=== PATIENT | female | born 1935 | race Caucasian/White ===

== ENCOUNTER 2016-11-20 12:11 | Outpatient (CLI) ==
[2016-03-07 19:52] VITALS: BMI 27.1
[2016-11-20 12:27] LABS: BILIRUBIN,URINE Negative (NEGATIVE); KETONES,URINE Trace (NEGATIVE); LEUKOCYTE ESTERASE ,URINE 2+ (NEGATIVE); NITRITE,URINE Positive (NEGATIVE); PH,URINE 5.5 (5-9); PROTEIN,URINE 2+ (NEGATIVE); URINE, BLOOD 2+ (NEGATIVE)
[2016-11-20 12:34] LABS: ADD URINE MICROSCOPIC YES
[2016-11-20 12:35] LABS: BACTERIA,URINE 1+ (NOT PRESENT)
== END 2016-11-20 12:12 | disposition home or self-care (01) ==
LOC: LAB 12:11
PROVIDERS: ATTEND Emergency Medicine
DX: R50.9 Fever, unspecified (principal); R30.0 Dysuria
CPT/HCPCS: 81001; 87086; 87186

== ENCOUNTER 2017-03-20 08:57 | Outpatient (CLI) ==
[2016-03-07 19:52] VITALS: BMI 27.1
[2017-03-20 09:05] LABS: BILIRUBIN,URINE Negative (NEGATIVE); KETONES,URINE Negative (NEGATIVE); LEUKOCYTE ESTERASE ,URINE Trace (NEGATIVE); NITRITE,URINE Negative (NEGATIVE); PH,URINE 7.5 (5-9); PROTEIN,URINE Trace (NEGATIVE); URINE, BLOOD Trace-intact (NEGATIVE)
[2017-03-20 09:06] LABS: ADD URINE MICROSCOPIC YES
[2017-03-20 09:07] LABS: BACTERIA,URINE 1+ (NOT PRESENT)
== END 2017-03-20 08:58 | disposition home or self-care (01) ==
LOC: NONPT 08:57
PROVIDERS: ATTEND Family Medicine
DX: Z16.12 Extended spectrum beta lactamase (ESBL) resistance (principal)
CPT/HCPCS: 81001; 87086

== ENCOUNTER 2017-03-24 10:54 | Outpatient (CLI) ==
[2016-03-07 19:52] VITALS: BMI 27.1
[2017-03-24 11:03] LABS: BILIRUBIN,URINE 1+ (NEGATIVE); KETONES,URINE Trace (NEGATIVE); LEUKOCYTE ESTERASE ,URINE 3+ (NEGATIVE); NITRITE,URINE Negative (NEGATIVE); PROTEIN,URINE 1+ (NEGATIVE); URINE, BLOOD 1+ (NEGATIVE)
[2017-03-24 11:04] LABS: ADD URINE MICROSCOPIC YES
[2017-03-24 11:14] LABS: BACTERIA,URINE 1+ (NOT PRESENT)
== END 2017-03-24 10:55 | disposition home or self-care (01) ==
LOC: NONPT 10:54
PROVIDERS: ATTEND Internal Medicine
DX: N39.0 Urinary tract infection, site not specified (principal)
CPT/HCPCS: 81001; 87086

== ENCOUNTER 2017-05-01 11:40 | Emergency (ER) | payer OTHER ==
[2017-05-01 11:46] VITALS: BP 108/68; TEMP 97.8; BMI 27.0
--- NOTE | 2017-05-01 11:58 | ED.PDOC ---
General ED Provider: Dr. ALYSON SELF Chief Complaint: Respiratory Complaint Stated Complaint: Productive cough duration unclear Time Seen by Physician: 11:56 Mode of Arrival: Walk-In Information Source: EMT Exam Limitations: No limitations, Other (very hard of hearing) Primary Care Provider: RAUL RICHARDSON Nursing and Triage Documentation Reviewed and Agree: Yes Respiratory Complaint Exam - Respiratory Complaint/Exam Onset/Duration: uncertain Symptoms Are: Still present Timing: Intermittent Initial Severity: Moderate Current Severity: Moderate Location: Chest Character: Reports: Productive cough Aggravating: Reports: None Alleviating: Reports: None History of Healthcare-Acquired Pneumonia: Lives at prison Related Surgical History: Reports: None Pulmonary Embolism Risk Factors: None Tuberculosis Risk Factors: Reports: None Status Asthmaticus Risk Factors: Reports: None Home Oxygen Use: No Recent Stress Test: No Recent Echo/LV Function: No Current Antibiotic Use: No Current Asthma Medication Use: No Respiratory Distress: None Inadequate Respiratory Effort: No Dysphagia Present: No Stridor Present: No JVD Present: No Accessory Muscle Use: No Retractions: Not Present Diminished Breath Sounds: No Sinus Tenderness: None Grunting Respirations: No Kussmaul Respirations: No Review of Systems - Review Of Systems Constitutional: Reports: No symptoms Eyes: Reports: No symptoms Ears, Nose, Mouth, Throat: Reports: No symptoms (chronically MILLE LACS) Respiratory: Reports: Cough Cardiac: Reports: No symptoms GI: Reports: No symptoms : Reports: No symptoms Musculoskeletal: Reports: No symptoms Skin: Reports: No symptoms Neurological: Reports: No symptoms All Other Systems: Reviewed and Negative Past Medical History - Past Medical History Previously Healthy: No Endocrine: Reports: DM 2, Dyslipidemia Cardiovascular: Reports: Hypertension, A-Fib Respiratory: Reports: None Hematological: Reports: None Gastrointestinal: Reports: None Genitourinary: Reports: CKD Neuro/Psych: Reports: CVA Musculoskeletal: Reports: None Cancer: Reports: None Last Menstrual Period: N/A - Surgical History General Surgical History: Reports: Unknown - Family History Family History: Reports: Unknown - Social History Smoking Status: Never smoker Hx Substance Use: No Alcohol Screening: None - Immunizations Tetanus Shot up to Date: Yes Physical Exam - Physical Exam Appearance: Well-appearing Ill-appearing: None Pain Distress: None Critical Care Note - Critical Care Note Total Time (mins): 0 Course - Course Hematology/Chemistry: 05/01/17 12:21 05/01/17 12:21 Orders, Labs, Meds: Lab Review 05/01/17 05/01/17 12:21 13:05 WBC 8.03 RBC 4.10 L Hgb 12.7 Hct 37.9 MCV 92.4 MCH 31.0 MCHC 33.5 RDW Coeff of Lexie 13.2 Plt Count 223 Immature Gran % (Auto) 1.0 Neut % (Auto) 58.5 Lymph % (Auto) 29.0 [place] % (Auto) 9.7 Eos % (Auto) 1.6 Baso % (Auto) 0.2 Immature Gran # (Auto) 0.1 Neut # 4.7 Lymph # 2.3 [place] # 0.8 Eos # 0.1 Baso # 0.0 PT 12.7 H INR 1.26 Sodium 137 Potassium 4.0 Chloride 107 Carbon Dioxide 27 Anion Gap 7.0 BUN 24 H Creatinine 1.07 Estimated GFR (MDRD) 49.00 BUN/Creatinine Ratio 22.42 Glucose 140 H Calcium 9.0 Total Bilirubin 0.28 AST 15 ALT 13 Alkaline Phosphatase 82 Total Protein 7.2 Albumin 2.8 L Globulin 4.4 Albumin/Globulin Ratio 0.64 Urine Color Other Urine Clarity Cloudy Urine pH >=9.0 Ur Specific [place] 1.015 Urine Protein 2+ Urine Glucose (UA) Negative Urine Ketones Negative Urine Blood 2+ Urine Nitrite Positive Urine Bilirubin Negative Urine Urobilinogen 1.0 Ur Leukocyte Esterase 3+ Urine Microscopic RBC 2-5 Urine Microscopic WBC Tntc Ur Squamous Epith Cells 0-2 Triple Phos Crystals Trace Urine Bacteria 4+ Urine Mucus 3+ Orders Category Date Time Status NEBULIZER TREATMENT Stat CARDIO 05/01/17 12:14 Completed CBC W/ AUTO DIFF Stat LAB 05/01/17 12:21 Completed COMPREHENSIVE METABOLIC PANEL Stat LAB 05/01/17 12:21 Completed PT WITH INR Stat LAB 05/01/17 12:21 Completed URINALYSIS C & S IF INDICATED Stat LAB 05/01/17 13:05 Completed Albuterol Sulfate 0.083% Neb [Albuterol 0.083% Neb] MEDS 05/01/17 12:14 Discontinued 1 vial NEB ONCE STA CHEST, 1V AP ONLY Stat RADS 05/01/17 12:10 Completed Medications Discontinued Medications Generic Name Dose Route Start Last Admin Trade Name Freq PRN Reason Stop Dose Admin Albuterol Sulfate 1 vial 05/01/17 12:14 Albuterol 0.083% Neb NEB 05/01/17 12:15 ONCE STA Vital Signs: Temp Pulse Resp BP Pulse Ox 05/01/17 11:40 97.8 F 82 14 108/68 92 L Departure - Departure Time of Disposition: 13:25 Disposition: HOME SELF-CARE Discharge Problem: Bronchitis, Bronchospasm with bronchitis, acute Instructions: Acute Bronchitis (ED), Bronchospasm (ED) Condition: Good Pt referred to PMD for follow-up: Yes (Recheck by PCP in 3 days) Allergies/Adverse Reactions: Allergies tuberculin, purified protein deriva [From Tubersol] Adverse Reaction (Verified 05/01/17 12:08) Home Medications: Ambulatory Orders Calcium Carbonate/Vitamin D3 [Calcium 600 + Vit D 400 Softgl] 1 cap PO BID 02/09 Ferrous Sulfate 325 mg PO DAILY 02/09/15 Levothyroxine Sodium [Synthroid] 75 mcg PO QDAC 02/09/15 Omeprazole [Prilosec] 40 mg PO QDAC 02/09/15 Pravastatin Sodium [Pravachol] 40 mg PO QPM 02/09/15 Guaifenesin [Mucinex] 600 mg PO Q12HR PRN 08/19/15 Ipratropium/Albuterol Neb [Duoneb] 1 vial NEB RTQ8H PRN 08/19/15 Insulin Glargine,Hum.rec.anlog [Lantus] 15 unit SUBCUT BEDTIME #1 ml 08/25/15 Docusate Sodium [Colace] 100 mg PO Q8HR PRN 10/29/15 Hydrocodone Bit/Acetaminophen [[place] 5-325] 1 each PO Q6HR PRN 10/29/15 Insulin Regular, Human [Humulin R] 1 unit SUBCUT DIRECTED PRN 10/29/15 Lipase/Protease/Amylase [[place] 24,000 Units Capsule] 1 each PO DAILY Magnesium Hydroxide [Milk of Magnesia] 30 ml PO Q8HR PRN 10/29/15 Mineral Oil [Mineral Oil Enema] 133 ml RC DAILY PRN 10/29/15 Sennosides [Senna] 8.6 mg PO BID 10/29/15 Azithromycin [Zithromax] 500 mg PO DAILY #5 tablet 05/01/17 Guaifenesin [Mucinex] 1,200 mg PO BID #40 tab.er.12h 05/01/17 Warfarin Sodium [Coumadin] 2 mg PO DAILY 05/01/17 Disposition Discussed With: Patient, Family
[2017-05-01] MEDS ORDERED: ALBUTEROL 0.083% NEB NEB STA (12:14)
[2017-05-01 12:27] LABS: BASOPHILS % (AUTO) 0.2 % (0.0-3.0); EOSINOPHILS # (AUTO) 0.1 K/ul (0.0-0.7); EOSINOPHILS % (AUTO) 1.6 % (0.0-7.0); HEMATOCRIT 37.9 % (37.0-47.0); HEMOGLOBIN 12.7 g/dl (12.0-16.0); LYMPHOCYTES # (AUTO) 2.3 K/uL (0.60-3.4); MEAN CORPUSCULAR HGB CONC 33.5 (31.8-35.4); MEAN CORPUSCULAR VOLUME 92.4 fl (81.0-99.0); MONOCYTES # (AUTO) 0.8 K/uL (0.4-2.0); MONOCYTES % (AUTO) 9.7 (0-10); NEUTROPHILS # (AUTO) 4.7 K/ul (2.0-6.9); NEUTROPHILS % (AUTO) 58.5; PLATELET COUNT 223 10^3/uL (140-440); WHITE BLOOD COUNT 8.03 K/ul (4.6-10.2)
[2017-05-01 12:44] LABS: PROTHROMBIN TIME 12.7 SEC (9.3-11.0)
[2017-05-01 12:46] LABS: ALBUMIN 2.8 g/dL (3.4-5.0); ALBUMIN/GLOBULIN RATIO 0.64; BILIRUBIN,TOTAL 0.28 mg/dL (0.00-1.20); BUN/CREATININE RATIO 22.42; CREATININE 1.07 mg/dL (0.60-1.30); TOTAL PROTEIN 7.2 g/dL (5.8-8.1)
--- NOTE | 2017-05-01 12:48 | DI ---
EXAM: Single view chest COMPARISON: Chest Xray from 10/31/2015 HISTORY: Cough FINDINGS: Lungs are clear with no lobar consolidation, failure, large effusion or significant atele ctasis. There is old granulomatous disease. Cardiac and mediastinal silhouettes are unremarkable. No acute soft tissue or osseous abnormalities. IMPRESSION: No active disease.
[2017-05-01 13:12] LABS: BILIRUBIN,URINE Negative (NEGATIVE); KETONES,URINE Negative (NEGATIVE); LEUKOCYTE ESTERASE ,URINE 3+ (NEGATIVE); NITRITE,URINE Positive (NEGATIVE); PH,URINE >=9.0 (5-9); PROTEIN,URINE 2+ (NEGATIVE); URINE, BLOOD 2+ (NEGATIVE)
[2017-05-01 13:15] LABS: ADD URINE MICROSCOPIC YES
[2017-05-01 13:17] LABS: BACTERIA,URINE 4+ (NOT PRESENT)
[2017-05-01] MEDS ORDERED: SOLU-MEDROL 125 MG IM STA (13:26)
[2017-05-01] MEDS ORDERED: SODIUM CHLORIDE 1,000 ML IV STA (13:28)
== END 2017-05-01 14:05 | disposition home or self-care (01) ==
LOC: ED 11:40
DX: J20.9 Acute bronchitis, unspecified (principal); E11.9 Type 2 diabetes mellitus without complications; E78.5 Hyperlipidemia, unspecified; I10 Essential (primary) hypertension; N18.9 Chronic kidney disease, unspecified; I48.91 Unspecified atrial fibrillation; Z79.01 Long term (current) use of anticoagulants; Z79.899 Other long term (current) drug therapy; Z86.73 Personal history of transient ischemic attack (TIA), and cerebral infarction without residual deficits; R05 Cough; R09.89 Other specified symptoms and signs involving the circulatory and respiratory systems
CPT/HCPCS: 36415; 80053; 81001; 85025; 85610; 87086; 87186; 94640; 96372; 99285

== ENCOUNTER 2017-05-31 11:27 | Outpatient (CLI) | payer OTHER ==
[2017-05-31 11:39] LABS: BILIRUBIN,URINE Negative (NEGATIVE); KETONES,URINE Negative (NEGATIVE); LEUKOCYTE ESTERASE ,URINE 3+ (NEGATIVE); NITRITE,URINE Positive (NEGATIVE); PROTEIN,URINE 1+ (NEGATIVE); URINE, BLOOD 2+ (NEGATIVE)
[2017-05-31 11:42] LABS: ADD URINE MICROSCOPIC YES
[2017-05-31 11:48] LABS: BACTERIA,URINE 3+ (NOT PRESENT)
== END 2017-05-31 11:28 | disposition home or self-care (01) ==
LOC: NONPT 11:27
PROVIDERS: ATTEND Internal Medicine
DX: N39.0 Urinary tract infection, site not specified (principal)
CPT/HCPCS: 81001; 87086

== ENCOUNTER 2017-08-09 15:24 | Outpatient (CLI) ==
[2017-08-09 15:36] LABS: BILIRUBIN,URINE Negative (NEGATIVE); KETONES,URINE Negative (NEGATIVE); LEUKOCYTE ESTERASE ,URINE 3+ (NEGATIVE); NITRITE,URINE Positive (NEGATIVE); PROTEIN,URINE 1+ (NEGATIVE); URINE, BLOOD 2+ (NEGATIVE)
[2017-08-09 16:03] LABS: ADD URINE MICROSCOPIC YES
[2017-08-09 16:04] LABS: BACTERIA,URINE 4+ (NOT PRESENT)
== END 2017-08-09 15:25 | disposition home or self-care (01) ==
LOC: NONPT 15:24
PROVIDERS: ATTEND Internal Medicine
DX: R82.90 Unspecified abnormal findings in urine (principal)
CPT/HCPCS: 81001; 87086

== ENCOUNTER 2017-08-17 01:34 | Inpatient (IN) | payer OTHER ==
--- NOTE | 2017-08-17 03:18 | CT ---
EXAM: CT of the chest without contrast. HISTORY: Cough. PROCEDURE: Contiguous axial CT images of the chest without contrast with coronal and sagittal reform ats. FINDINGS: There is motion artifact which limits the exam. The heart is within normal limits in size. The thoracic aorta is within normal limits in diameter. There are atherosclerotic calcifications i n the thoracic aorta. There are coronary artery calcifications. There are calcified hilar lymph node s and bilateral calcified granulomas in the lungs. There is minimal right upper lobe and bibasilar at electasis and/or pneumonia. There are degenerative changes in the spine. There is a T11 compression f racture which appears chronic. There are gallstones in the gallbladder. The gallbladder is within no rmal limits in size. The adrenal glands and liver are normal in appearance. Impression: Minimal right upper lobe and bibasilar atelectasis and/or pneumonia. Atherosclerotic vascular disease. Cholelithiasis.
--- NOTE | 2017-08-17 03:18 | ED.PDOC ---
General ED Provider: Dr. JOSSE JACOBSON-ER Chief Complaint: Fever Stated Complaint: she was sent by [facility] for fever eval Time Seen by Physician: 01:40 Mode of Arrival: Ambulance Information Source: Patient, Family, Retirement, EMT Exam Limitations: No limitations Primary Care Provider: RAUL CORONADO Nursing and Triage Documentation Reviewed and Agree: Yes Reviewed sepsis parameters & appropriate labs ordered?: Yes System Inflammatory Response Syndrome: Not Applicable Sepsis Protocol: For patient's 13 years and over: Temp is 96.8 and below OR 101 and greater Pulse >90 BPM Resp >20/minute Acutely Altered Mental Status Are patient's symptoms suggestive of a new infection, such as: -Pneumonia -Skin, Soft Tissue -Endocarditis -UTI -Bone, Joint Infection -Implantable Device -Acute Abdominal Infection -Wound Infection -Meningitis -Blood Stream Catheter Infection -Unknown Miscellaneous Complaint Exam - Febrile Illness/Adult Complaint/Exam Onset/Duration: less than 12hrs Symptoms Are: Still present Timing: Constant Initial Severity: Mild Current Severity: Moderate Aggravating: Reports: Unknown Alleviating: Reports: None Associated Signs and Symptoms: Reports: Cough, Chills. Denies: Headache, Fluid intake, Short of air, Sore throat, Nausea, Vomiting, Diaphoresis, Dysuria, Arthralgia, Stiff neck, Myalgia, Rash, Altered mental status Related History: Reports: Similar episode Serious Bacterial Infection Risk Factors: Reports: None Current Antibiotic Use: No Differential Diagnoses: Bacteremia, Pyelonephritis Quality Indicator For Non-Traumatic Chest Pain/Syncope: EKG Performed Review of Systems - Review Of Systems Constitutional: Reports: Chills, Fever, Weakness Eyes: Reports: No symptoms Ears, Nose, Mouth, Throat: Reports: No symptoms Respiratory: Reports: Cough Cardiac: Reports: No symptoms GI: Reports: No symptoms : Reports: No symptoms Musculoskeletal: Reports: No symptoms Skin: Reports: No symptoms Neurological: Reports: No symptoms Endocrine: Reports: No symptoms Hematologic/Lymphatic: Reports: No symptoms All Other Systems: Reviewed and Negative Past Medical History - Past Medical History Previously Healthy: No Endocrine: Reports: DM 2, Dyslipidemia Cardiovascular: Reports: Hypertension, A-Fib Respiratory: Reports: None Hematological: Reports: None Gastrointestinal: Reports: None Genitourinary: Reports: CKD Neuro/Psych: Reports: CVA Musculoskeletal: Reports: None Cancer: Reports: None Last Menstrual Period: UNKNOWN - Surgical History General Surgical History: Reports: Unknown - Family History Family History: Reports: Unknown - Social History Smoking Status: Never smoker Hx Substance Use: No Alcohol Screening: None Lives: With family - Immunizations Tetanus Shot up to Date: (UNKNOWN) Physical Exam - Physical Exam Appearance: Well-appearing, No pain distress, Well-nourished Eyes: GLEN, EOMI, Conjunctiva clear ENT: Ears normal, Nose normal, Oropharynx normal Neck: Supple Respiratory: Airway patent, Breath sounds clear, Breath sounds equal, Respirations nonlabored Cardiovascular: RRR, Pulses normal, No rub, No murmur GI/: Soft, Nontender, No masses, Bowel sounds normal, No Organomegaly Musculoskeletal: Normal strength, ROM intact, No edema, No calf tenderness Skin: Warm, Dry, Normal color Neurological: Sensation intact Psychiatric: Affect appropriate, Mood appropriate Interpretation - Radiology Interpretation Radiology Interpretation By: Radiologist Radiology Results: Positive Exam Interpreted: CT Scan Physician Notification - Case Discussed Physician Notified: dr coronado Time of Notification: 03:25 Critical Care Note - Critical Care Note Total Time (mins): 0 Course - Course Hematology/Chemistry: 08/17/17 02:36 08/17/17 02:36 Orders, Labs, Meds: Lab Review 08/17/17 08/17/17 08/17/17 02:00 02:36 02:36 WBC 12.87 H RBC 3.84 L Hgb 11.7 L Hct 35.7 L MCV 93.0 MCH 30.5 MCHC 32.8 RDW Coeff of Lexie 13.5 Plt Count 259 Immature Gran % (Auto) 0.5 Neut % (Auto) 64.6 Lymph % (Auto) 23.2 [place] % (Auto) 10.6 H Eos % (Auto) 0.9 Baso % (Auto) 0.2 Immature Gran # (Auto) 0.1 Neut # 8.3 H Lymph # 3.0 [place] # 1.4 Eos # 0.1 Baso # 0.0 Sodium 143 Potassium 3.6 Chloride 108 H Carbon Dioxide 26 Anion Gap 12.6 BUN 21 H Creatinine 1.69 H Estimated GFR (MDRD) 29.00 BUN/Creatinine Ratio 12.42 Glucose 219 H Calcium 8.5 Total Bilirubin 0.5 AST 16 ALT 14 Alkaline Phosphatase 82 Total Protein 7.5 Albumin 2.3 L Globulin 5.2 Albumin/Globulin Ratio 0.44 Urine Color Urine Clarity Urine pH Ur Specific [place] Urine Protein Urine Glucose (UA) Urine Ketones Urine Blood Urine Nitrite Urine Bilirubin Urine Urobilinogen Ur Leukocyte Esterase Urine Microscopic RBC Urine Microscopic WBC Ur Squamous Epith Cells Urine Bacteria Influenza A (Rapid) Negative by naat Influenza B (Rapid) Negative by naat 08/17/17 03:10 WBC RBC Hgb Hct MCV MCH MCHC RDW Coeff of Lexie Plt Count Immature Gran % (Auto) Neut % (Auto) Lymph % (Auto) [place] % (Auto) Eos % (Auto) Baso % (Auto) Immature Gran # (Auto) Neut # Lymph # [place] # Eos # Baso # Sodium Potassium Chloride Carbon Dioxide Anion Gap BUN Creatinine Estimated GFR (MDRD) BUN/Creatinine Ratio Glucose Calcium Total Bilirubin AST ALT Alkaline Phosphatase Total Protein Albumin Globulin Albumin/Globulin Ratio Urine Color Yellow Urine Clarity Cloudy Urine pH 5.5 Ur Specific [place] 1.015 Urine Protein 2+ Urine Glucose (UA) Negative Urine Ketones Trace Urine Blood 2+ Urine Nitrite Negative Urine Bilirubin Negative Urine Urobilinogen 0.2 Ur Leukocyte Esterase 3+ Urine Microscopic RBC 5-10 Urine Microscopic WBC Tntc Ur Squamous Epith Cells Not present Urine Bacteria 3+ Influenza A (Rapid) Influenza B (Rapid) Orders Category Date Time Status ABG DRAW REQUEST Stat CARDIO 08/17/17 03:22 Ordered EKG-(ED ONLY) Stat CARDIO 08/17/17 03:21 Ordered ED IV/MEDIPORT/POWERPORT .ONCE EMERGENCY 08/17/17 03:24 Ordered ABG Stat LAB 08/17/17 03:21 Ordered BLOOD CULTURE (ED ONLY) Stat LAB 08/17/17 02:36 Received CBC W/ AUTO DIFF Stat LAB 08/17/17 02:36 Completed COMPREHENSIVE METABOLIC PANEL Stat LAB 08/17/17 02:36 Completed MOLECULAR GROUP A STREP Stat LAB 08/17/17 02:00 Results RAPID FLU A/B Stat LAB 08/17/17 02:00 Completed STREP SCREEN Stat LAB 08/17/17 02:00 Results URINALYSIS C & S IF INDICATED Stat LAB 08/17/17 03:10 Completed URINE CULTURE Stat LAB 08/17/17 03:10 Received 0.9 % Sodium Chloride [Saline Flush] MEDS 08/17/17 03:24 Ordered 1 syr IVF PRN PRN Aztreonam [Azactam] 1 gm MEDS 08/17/17 03:24 Ordered 0.9 % Sodium Chloride [Sodium Chloride] 50 ml IV ONCE SODIUM CHLORIDE 0.9% @ 1,000 MLS/HR(1,000ml) MEDS 08/17/17 03:24 Ordered Sodium Chloride 0.9% [Sodium Chloride] 1,[address] CHEST W/O CONTRAST Stat RADS 08/17/17 02:27 Completed Vital Signs: Temp Pulse Resp BP Pulse Ox 08/17/17 01:35 99.3 F 93 H 20 90/58 L 94 L Departure - Departure Time of Disposition: 03:25 Disposition: ADMITTED INPATIENT Discharge Problem: Pneumonia Qualifiers: Pneumonia type: due to unspecified organism Laterality: unspecified laterality Lung location: unspecified part of lung Qualified Code(s): J18.9 - Pneumonia, unspecified organism UTI (urinary tract infection) Qualifiers: Urinary tract infection type: site unspecified Hematuria presence: without hematuria Qualified Code(s): N39.0 - Urinary tract infection, site not specified Condition: Stable Pt referred to PMD for follow-up: Yes Allergies/Adverse Reactions: Allergies tuberculin, purified protein deriva [From Tubersol] Adverse Reaction (Verified 08/17/17 02:27) Home Medications: Ambulatory Orders Calcium Carbonate/Vitamin D3 [Calcium 600 + Vit D 400 Softgl] 1 cap PO BID 02/09 Ferrous Sulfate 325 mg PO DAILY 02/09/15 Levothyroxine Sodium [Synthroid] 75 mcg PO QDAC 02/09/15 Omeprazole [Prilosec] 20 mg PO QDAC 02/09/15 Pravastatin Sodium [Pravachol] 40 mg PO QPM 02/09/15 Insulin Glargine,Hum.rec.anlog [Lantus] 15 unit SUBCUT BEDTIME #1 ml 08/25/15 Docusate Sodium [Colace] 100 mg PO BID 10/29/15 Insulin Regular, Human [Humulin R] 1 unit SUBCUT DIRECTED PRN 10/29/15 Lipase/Protease/Amylase [[place] 24,000 Units Capsule] 1 each PO DAILY Magnesium Hydroxide [Milk of Magnesia] 30 ml PO Q8HR PRN 10/29/15 Sennosides [Senna] 8.6 mg PO BID 10/29/15 Ipratropium/Albuterol Neb [Duoneb] 1 vial NEB RTQ6H PRN #40 vial.neb 05/01/17 Warfarin Sodium [Coumadin] 2 mg PO DAILY 05/01/17 Acetaminophen [Tylenol] 2 tab PO Q6H PRN 08/17/17 Amoxicillin/Potassium Clav [Augmentin 875-125 Tablet] 1 each PO BID 08/17/17 Mupirocin [Bactroban] 1 applic TP BID 08/17/17 Oseltamivir Phosphate [Tamiflu] 75 mg PO DAILY 08/17/17 Sub-Q Infusion Pump Accessory [Accu-Chek] 1 each MC BID 08/17/17 Transfer Form Completed: No Disposition Discussed With: Family
[2017-08-17] MEDS ORDERED: AZACTAM 1 GM in SODIUM CHLORIDE 50 ML IV STA (03:24)
[2017-08-17] MEDS ORDERED: SODIUM CHLORIDE 1,000 ML IV STA (03:24)
[2017-08-17] MEDS ORDERED: TYLENOL PO PRN (03:27)
[2017-08-17] MEDS ORDERED: HUMULIN R SUBCUT PRN (03:30)
[2017-08-17] MEDS ORDERED: DUONEB NEB PRN (03:30)
[2017-08-17] MEDS ORDERED: SODIUM CHLORIDE 1,000 ML IV SCH (03:30)
[2017-08-17] MEDS ORDERED: MILK OF MAGNESIA PO PRN (03:30)
[2017-08-17] MEDS ORDERED: AZACTAM 1 GM in SODIUM CHLORIDE 50 ML IV SCH (05:00)
[2017-08-17 05:30] VITALS: BMI 12.4
[2017-08-17] MEDS ORDERED: AZACTAM ONE (05:36)
[2017-08-17] MEDS ORDERED: SYNTHROID PO SCH (06:30)
[2017-08-17] MEDS: PRILOSEC PO SCH (07:04)
[2017-08-17] MEDS ORDERED: VANCOMYCIN 500 MG in SODIUM CHLORIDE 100 ML IV SCH (09:00)
[2017-08-17] MEDS ORDERED: COUMADIN PO SCH (09:00)
[2017-08-17] MEDS ORDERED: LIPASE PO SCH (09:00)
[2017-08-17] MEDS ORDERED: NON-FORMULARY MEDICATION (Ferrous Sulfate [Ferrous Sulfate] 325 MG) PO SCH (09:00)
[2017-08-17] MEDS ORDERED: AMYLASE PO SCH (09:00)
[2017-08-17] MEDS ORDERED: [UNRECOGNIZED DRUG - OTHER] PO SCH (09:00)
[2017-08-17] MEDS ORDERED: PROTEASE PO SCH (09:00)
[2017-08-17] MEDS ORDERED: VANCOMYCIN 1,000 MG in SODIUM CHLORIDE 200 ML IV SCH (09:00)
[2017-08-17] MEDS ORDERED: SENNOSIDES 8.6 MG PO SCH (09:00)
[2017-08-17] MEDS: COLACE PO SCH ×2 (09:03→23:16)
[2017-08-17] MEDS: FERROUS SULFATE PO SCH (09:03)
[2017-08-17] MEDS: CREON DR 12,000 UNITS CAPSULE PO SCH (09:03)
[2017-08-17] MEDS: SENNA PO SCH ×2 (09:03→23:16)
[2017-08-17] MEDS: SODIUM CHLORIDE 1,000 ML IV SCH (09:04)
[2017-08-17] MEDS: SYNTHROID PO SCH (09:13)
[2017-08-17] MEDS ORDERED: VITAMIN K ORAL SOLUTION 5 MG/5 ML PO STA (09:23)
--- NOTE | 2017-08-17 11:04 | PCM.PROG ---
Attending Provider: ATTENDING PROVIDER: Dr. RAUL RICHARDSON This patient is seen with Shanita Kate, Nurse Practitioner. DATE OF SERVICE: 08/17/17 SUBJECTIVE: This 81 year old WHITE/ F was hospitalized 08/17/17. The patient is resting comfortably in bed, The patient is alert, not oriented due to confusion. REVIEW OF SYSTEMS: CONSTITUTIONAL: No night sweats. No fatigue, malaise, lethargy. No fever or chills. HEENT: Eyes: No visual changes. No eye pain. No eye discharge. ENT: No runny nose. No epistaxis. No sinus pain. No odynophagia. No congestion. RESPIRATORY: Cough and congestion. No hemoptysis. No shortness of breath. CARDIOVASCULAR: No angina symptoms. No CHF symptoms. No atypical chest pain for CAD. No palpitations. No orthopnea.. GASTROINTESTINAL: No abdominal pain. No nausea or vomiting. No diarrhea or constipation. No hematemesis. No hematochezia. GENITOURINARY: No urgency. No frequency. No dysuria. No hematuria. No obstructive symptoms. No discharge. No pain. No significant abnormal bleeding. MUSCULOSKELETAL: No musculoskeletal pain; no joint swelling. NEUROLOGICAL: Awake, alert, confused. No headache. No neck pain. No syncope. No seizures. No dizziness. PSYCHIATRIC: Not anxious. No depression. No suicidal thoughts. No homicidal thoughts. SKIN: No rash. No lesions. No wounds. ENDOCRINE: No unexplained weight loss. No weight gain. HEMATOLOGIC/LYMPHATIC: No anemia. No purpura. No petechiae. No prolonged or excessive bleeding. No palpable lymph nodes. PHYSICAL EXAMINATION: GENERAL: The patient is awake, alert and oriented, lying in bed in no distress. VITAL SIGNS: Temperature 96.6 F, Pulse 87, Respiratory Rate 16, BP 90/58, Pulse Ox 100% HEENT: Head normocephalic, atraumatic. Eyes: Extraocular muscles are intact. Pupils are equal, round and reactive to light and accommodation. Ears: No lesions. Nose appeared normal. Throat: No exudate or erythema. NECK: Supple. No JVD, no carotid bruit. No lymphadenopathy or thyromegaly. LUNGS: Diminished breath sounds bilaterally. Clear to auscultation. Percussion note normal. Chest symmetrical. HEART: S1, S2, no S3. No murmurs. No cyanosis or clubbing. No ascites. Pulses: Dorsalis pedis and posterior tibial pulses +1 to +2 both sides. ABDOMEN: Soft. Non-tender. Bowel sounds active. No CVA tenderness. No mass felt. EXTREMITIES: No edema. Full range of motion of all extremities, equal. NEUROLOGIC: Oriented to person only; confusion. No focal deficit. Cranial nerves II through XII are grossly intact. No headache, no double vision or headache. SKIN: Not dry. Intact. Turgor-normal. LYMPHATIC: No palpable lymph nodes/no lymphedema. MUSCULOSKELETAL: Normal joints with no swelling. Muscle tone is normal. ASSESSMENT: 1. Right upper lobe pneumonia 2. UTI, culture pending 3. Hypercoagulation 4. Dehydration PLAN: 1. Continue IV antibiotics 2. Decrease IV fluids to 50 mL Plan and coordination of the patient's care discussed in the presence of Commercial Crabber and nurse. CONDITION: Stable SCRIBED BY: AUGUSTINA ROSALES Law Professor scribed while in presence of service performed by Dr. Richardson/Shanita Kate APRN on 08/17/17 ([id number])
[2017-08-17] MEDS: AZACTAM 1 GM in SODIUM CHLORIDE 50 ML IV SCH ×2 (12:35→23:13)
[2017-08-17] MEDS: LOTRISONE 45 GM TP SCH ×2 (14:30→23:14)
[2017-08-17] MEDS: PRAVACHOL PO SCH (18:08)
[2017-08-17] MEDS ORDERED: LANTUS SUBCUT SCH (21:00)
[2017-08-18] MEDS: AZACTAM 1 GM in SODIUM CHLORIDE 50 ML IV SCH ×3 (04:01→20:50)
[2017-08-18] MEDS: SODIUM CHLORIDE 1,000 ML IV SCH (04:03)
[2017-08-18] MEDS: SYNTHROID PO SCH (06:02)
[2017-08-18] MEDS: PRILOSEC PO SCH (06:02)
[2017-08-18] MEDS: CREON DR 12,000 UNITS CAPSULE PO SCH (08:39)
[2017-08-18] MEDS: SENNA PO SCH ×2 (08:39→20:50)
[2017-08-18] MEDS: FERROUS SULFATE PO SCH (08:39)
[2017-08-18] MEDS: COLACE PO SCH ×2 (08:39→20:50)
[2017-08-18] MEDS: BACTROBAN TP SCH ×2 (08:43→20:51)
--- NOTE | 2017-08-18 09:32 | PCM.PROG ---
Attending Provider: ATTENDING PROVIDER: Dr. RAUL RICHARDSON This patient is seen with Shanita Kate, Nurse Practitioner. DATE OF SERVICE: 08/18/17 SUBJECTIVE: This 81 year old WHITE/ F was hospitalized 08/17/17. The patient is lying in bed, alert but difficult to communicate due to confusion. No fever. REVIEW OF SYSTEMS: CONSTITUTIONAL: Weakness. No night sweats. No fever or chills. HEENT: Eyes: No visual changes. No eye pain. No eye discharge. ENT: No runny nose. No epistaxis. No sinus pain. No odynophagia. No congestion. RESPIRATORY: Cough. No congestion. . No hemoptysis. No shortness of breath. CARDIOVASCULAR: No angina symptoms. No CHF symptoms. No atypical chest pain for CAD. No palpitations. No orthopnea.. GASTROINTESTINAL: No abdominal pain. No nausea or vomiting. No diarrhea or constipation. No hematemesis. No hematochezia. GENITOURINARY: No urgency. No frequency. No dysuria. No hematuria. No obstructive symptoms. No discharge. No pain. No significant abnormal bleeding. MUSCULOSKELETAL: No musculoskeletal pain; no joint swelling. NEUROLOGICAL: Awake, alert, oriented to person. No headache. No neck pain. No syncope. No seizures. No dizziness. PSYCHIATRIC: Not anxious. No depression. No suicidal thoughts. No homicidal thoughts. SKIN: No rash. Open wound tip of ring finger, left hand. ENDOCRINE: No unexplained weight loss. No weight gain. HEMATOLOGIC/LYMPHATIC: No anemia. No purpura. No petechiae. No prolonged or excessive bleeding. No palpable lymph nodes. PHYSICAL EXAMINATION: GENERAL: The patient is awake, alert, but confused lying in bed in no distress. VITAL SIGNS: Temperature 97.0 F, Pulse 82, Respiratory Rate 20, BP 109/57, Pulse Ox 94% HEENT: Head normocephalic, atraumatic. Eyes: Extraocular muscles are intact. Pupils are equal, round and reactive to light and accommodation. Ears: No lesions. Nose appeared normal. Throat: No exudate or erythema. NECK: Supple. No JVD, no carotid bruit. No lymphadenopathy or thyromegaly. LUNGS: Diminished breath sounds bilaterally. Clear to auscultation. Percussion note normal. Chest symmetrical. HEART: S1, S2, no S3. No murmurs. No cyanosis or clubbing. No ascites. Pulses: Dorsalis pedis and posterior tibial pulses +1 to +2 both sides. ABDOMEN: Soft. Non-tender. Bowel sounds active. No CVA tenderness. No mass felt. EXTREMITIES: Trace lower edema, right. Full range of motion of all extremities , equal. NEUROLOGIC: No focal deficit. Cranial nerves II through XII are grossly intact. No headache, no double vision or headache. SKIN: warm and dry. Open wound tip of left right finger, mild erythema with purulent exudate. LYMPHATIC: No palpable lymph nodes/no lymphedema. MUSCULOSKELETAL: Normal joints with no swelling. Muscle tone is normal. LAB REVIEW: 08/18/17 05:00 08/18/17 05:00 08/18/17 05:00: Sodium 138, Potassium 4.4, Chloride 105, Carbon Dioxide 27, Anion Gap 10.4, BUN 14, Creatinine 0.84 D, Estimated GFR (MDRD) 65.00, BUN/ Creatinine Ratio 16.66, Glucose 89, Calcium 8.2, Total Bilirubin 0.5, AST 16, ALT 12, Alkaline Phosphatase 74, Total Protein 6.5, Albumin 2.1 L, Globulin 4.4 , Albumin/Globulin Ratio 0.48 08/18/17 05:00: PT 16.2 H D, INR 1.61 D 08/18/17 05:00: WBC 8.00, RBC 3.45 L, Hgb 10.3 L, Hct 32.0 L, MCV 92.8, MCH 29.9 , MCHC 32.2, RDW Coeff of Lexie 13.1, Plt Count 217, Immature Gran % (Auto) 0.6, Neut % (Auto) 55.3, Lymph % (Auto) 32.0, [place] % (Auto) 8.6, Eos % (Auto) 3.4, Baso % (Auto) 0.1, Immature Gran # (Auto) 0.1, Neut # 4.4, Lymph # 2.6, [place] # 0.7, Eos # 0.3, Baso # 0.0 ASSESSMENT: 1. Right upper lobe pneumonia 2. UTI, culture pending 3. Hypercoagulation, resolved INR 1.6 4. Dehydration, resolved 5. Wound left ring finger PLAN: 1. Culture wound of left ring finger 2. D/C IV fluids 3. Bactroban to wound on finger and dress 4. Urine culture 5. Hold Lantus 6. Restart Coumadin Plan and coordination of the patient's care discussed in the presence of Book Coverer and nurse. CONDITION: Stable SCRIBED BY: AUGUSTINA ROSALES Wet Mix Operator scribed while in presence of service performed by Dr. Richardson/Shanita Kate APRN on 08/18/17 ([id number])
--- NOTE | 2017-08-18 11:29 | HP ---
DATE OF SERVICE: 08/17/17 HISTORY OF PRESENT ILLNESS: This is an 81-year-old white female who currently resides at [facility]. She had previously been treated for a urinary tract infection starting last week. She has a history of recurrent UTIs. The prison reported that she had had decreased alertness and was talking less. She had low grade fever. She was brought to the emergency room. PAST MEDICAL HISTORY: Recurrent UTI's Alzheimer's dementia Diabetes mellitus Type 2 Dyslipidemia Hypertension Atrial fibrillation History of CVA Chronic kidney disease Hypothyroidism Anemia GERD Dyslipidemia COPD PAST SURGICAL HISTORY: Hysterectomy 1975 Multiple foot and ankle surgeries Cataract surgery REVIEW OF SYSTEMS: CONSTITUTIONAL: Positive for fever, chills and weakness. No night sweats. No fatigue, malaise, lethargy. HEENT: Eyes: No visual changes. No blurred vision. No eye pain. No eye discharge. ENT: No runny nose. No epistaxis. No sinus pain. No sore throat. No sore throat. No ear pain. No congestion. RESPIRATORY: Positive for cough. No hemoptysis. No shortness of breath. CARDIOVASCULAR: No angina symptoms. No CHF symptoms. No atypical chest pain for CAD. No palpitations. No orthopnea. GASTROINTESTINAL: Positive for decreased appetite. No abdominal pain. No nausea or vomiting. No diarrhea or constipation. No hematemesis. No hematochezia. GENITOURINARY: Positive for dysuria. No urgency. No frequency. No hematuria. No obstructive symptoms. No discharge. No pain. No significant abnormal bleeding. MUSCULOSKELETAL: Generalized weakness. No joint swelling or redness. NEUROLOGICAL: Confusion due to dementia. No headache. No neck pain. No syncope. No seizures. No dizziness. PSYCHIATRIC: Not anxious. No depression. No suicidal thoughts. No homicidal thoughts. SKIN: Intact, no rashes. ENDOCRINE: No unexplained weight loss. No weight gain. HEMATOLOGIC/LYMPHATIC: No anemia. No purpura. No petechiae. No prolonged or excessive bleeding. No palpable lymph nodes. SOCIAL HISTORY: The patient is a resident of the prison, requires help for all activities of daily living. Nonsmoker. No alcohol abuse. MEDICATIONS: Ferrous sulfate 325 mg daily Synthroid 75 mcg daily Prilosec 20 mg daily Pravachol 40 mg daily Insulin Lantus 15 units at bedtime Colace 100 mg daily Humulin sliding scale Creon 24,000 units one capsule daily Duonebs q.6 p.r.n. Coumadin 2 mg daily Bactroban b.i.d. Tamiflu 75 mg daily which she has been on for prophylactic ALLERGIES: TUBERCULIN PHYSICAL EXAMINATION: GENERAL: The patient is well-appearing in no acute distress. VITAL SIGNS: Temperature 99.3, heart rate 93, respirations 20, BP 90/58, pulse ox 94%. HEENT: Head normocephalic, atraumatic. Eyes: Extraocular muscles are intact. Pupils are equal, round and reactive to light and accommodation. Ears: TMs within normal limits bilaterally. No lesions. Nose appeared normal. Throat: No exudate or erythema. NECK: Supple. No JVD, no carotid bruit. No lymphadenopathy or thyromegaly. LUNGS: Diminished breath sounds bilaterally with wheezing on the right. Percussion note normal. Chest symmetrical. HEART: Irregular rate and rhythm consistent with atrial fib. S1, S2. No murmurs , clicks or rubs. No cyanosis or clubbing. No ascites. Pulses: Dorsalis pedis and posterior tibial pulses +1 to +2 both sides. ABDOMEN: Soft. Nontender. Bowel sounds active times four quadrants. No hepatosplenomegaly. No CVA tenderness. No mass felt. EXTREMITIES: No edema. Full range of motion of all extremities, equal. NEUROLOGIC: The patient is oriented to person however not place or time. No focal deficit. Cranial nerves II through XII are grossly intact. No headache, no double vision or headache. SKIN: [place], warm and dry. Intact. Turgor - normal. LYMPHATIC: No palpable lymph nodes/no lymphedema. MUSCULOSKELETAL: The patient has generalized weakness, no edema. No clubbing or cyanosis. No joint swelling. No redness. Negative Christian's sign bilaterally. LAB/RADIOLOGY: CT scan of the chest revealed right upper lobe pneumonia. INR 5.02 showing hypercoagulation. White count 12.87, hemoglobin 11.7, hematocrit 35.7, platelets 259. Sodium 143, potassium 3.6, BUN 21, creatinine 1.69, glucose 219. UA positive for 3+ bacteria. ASSESSMENT: 1. RIGHT UPPER LOBE PNEUMONIA 2. ACUTE UTI 3. ALZHEIMER'S DEMENTIA WITH BEHAVIORAL DISTURBANCES 4. ACUTE ON CHRONIC KIDNEY FAILURE 5. ATRIAL FIBRILLATION 6. DIABETES MELLITUS TYPE 2 7. MILD DEHYDRATION PLAN: 1. Admit 2. Routine telemetry orders 3. D5 1/2 NS at 75 cc/hr 4. Rocephin 1 gm IV daily 5. Solu-Medrol 100 mg IV q.8hr 6. Chest x-ray 7. CBC, CMP daily 8. Regular ADA diet 9. Xopenex neb treatments q.6hr 10. Will follow closely TIME SPENT: More than 70 minutes. MTDD
[2017-08-18] MEDS: VANCOMYCIN 500 MG in SODIUM CHLORIDE 100 ML IV SCH ×2 (13:35→21:36)
[2017-08-18] MEDS: PRAVACHOL PO SCH (16:48)
[2017-08-18] MEDS ORDERED: COUMADIN PO SCH (17:00)
[2017-08-18] MEDS: HUMULIN R SUBCUT PRN ×2 (18:37→20:50)
[2017-08-18] MEDS ORDERED: LANTUS SUBCUT ONE (20:46)
[2017-08-19] MEDS: AZACTAM 1 GM in SODIUM CHLORIDE 50 ML IV SCH (04:31)
[2017-08-19] MEDS ORDERED: DEXTROSE 50%-WATER ABBOJECT ONE (05:19)
[2017-08-19] MEDS ORDERED: DEXTROSE 50%-WATER ABBOJECT IVP STA (05:21)
[2017-08-19 05:29] VITALS: BP 105/69; TEMP 97.1
[2017-08-19] MEDS: SYNTHROID PO SCH (05:50)
[2017-08-19] MEDS: PRILOSEC PO SCH (05:50)
[2017-08-19] MEDS: CREON DR 12,000 UNITS CAPSULE PO SCH (08:40)
[2017-08-19] MEDS: BACTROBAN TP SCH (08:40)
[2017-08-19] MEDS: COLACE PO SCH (08:40)
[2017-08-19] MEDS: SENNA PO SCH (08:40)
[2017-08-19] MEDS: FERROUS SULFATE PO SCH (08:40)
[2017-08-19] MEDS ORDERED: LANTUS SUBCUT SCH (09:45)
--- NOTE | 2017-08-19 10:13 | PCM.PROG ---
Attending Provider: ATTENDING PROVIDER: Dr. RAUL RICHARDSON This patient is seen with Shanita Kate, Nurse Practitioner. DATE OF SERVICE: 08/19/17 SUBJECTIVE: This 81 year old WHITE/ F was hospitalized 08/17/17. The patient is lying in bed, resting comfortably. No fever. She has been eating well. REVIEW OF SYSTEMS: CONSTITUTIONAL: No night sweats. No fatigue, malaise, lethargy. No fever or chills. HEENT: Eyes: No visual changes. No eye pain. No eye discharge. ENT: No runny nose. No epistaxis. No sinus pain. No odynophagia. No congestion. RESPIRATORY: Positive for cough and congestion. No hemoptysis. No shortness of breath. CARDIOVASCULAR: No angina symptoms. No CHF symptoms. No atypical chest pain for CAD. No palpitations. No orthopnea.. GASTROINTESTINAL: No abdominal pain. No nausea or vomiting. No diarrhea or constipation. No hematemesis. No hematochezia. GENITOURINARY: No urgency. No frequency. No dysuria. No hematuria. No obstructive symptoms. No discharge. No pain. No significant abnormal bleeding. MUSCULOSKELETAL: No musculoskeletal pain; no joint swelling. NEUROLOGICAL: Awake, alert, oriented to person only. No headache. No neck pain. No syncope. No seizures. No dizziness. PSYCHIATRIC: Not anxious. No depression. No suicidal thoughts. No homicidal thoughts. SKIN: No rash. No lesions. No wounds. ENDOCRINE: No unexplained weight loss. No weight gain. HEMATOLOGIC/LYMPHATIC: No anemia. No purpura. No petechiae. No prolonged or excessive bleeding. No palpable lymph nodes. PHYSICAL EXAMINATION: GENERAL: The patient is awake, alert and oriented to person, lying in bed in no distress. VITAL SIGNS: Temperature 97.1 F, Pulse 67, Respiratory Rate 16, BP 105/69, Pulse Ox 98% HEENT: Head normocephalic, atraumatic. Eyes: Extraocular muscles are intact. Pupils are equal, round and reactive to light and accommodation. Ears: No lesions. Nose appeared normal. Throat: No exudate or erythema. NECK: Supple. No JVD, no carotid bruit. No lymphadenopathy or thyromegaly. LUNGS: Diminished breath sounds bilaterally. Clear to auscultation. Percussion note normal. Chest symmetrical. HEART: S1, S2, no S3. No murmurs. No cyanosis or clubbing. No ascites. Pulses: Dorsalis pedis and posterior tibial pulses +1 to +2 both sides. ABDOMEN: Soft. Non-tender. Bowel sounds active. No CVA tenderness. No mass felt. EXTREMITIES: No edema. Full range of motion of all extremities, equal. NEUROLOGIC: No focal deficit. Cranial nerves II through XII are grossly intact. No headache, no double vision or headache. SKIN: Not dry. Intact. Turgor-normal. LYMPHATIC: No palpable lymph nodes/no lymphedema. MUSCULOSKELETAL: Normal joints with no swelling. Muscle tone is normal. LAB REVIEW: 08/19/17 04:20 08/19/17 04:20 08/19/17 04:20: Sodium 137, Potassium 3.8, Chloride 105, Carbon Dioxide 27, Anion Gap 8.8, BUN 12, Creatinine 0.82, Estimated GFR (MDRD) 67.00, BUN/ Creatinine Ratio 14.63, Glucose 57 L, Calcium 7.9 L, Total Bilirubin 0.4, AST 14 L, ALT 10 L, Alkaline Phosphatase 69, Total Protein 6.2, Albumin 1.9 L, Globulin 4.3, Albumin/Globulin Ratio 0.44 08/19/17 04:20: PT 12.1 H, INR 1.20 08/19/17 04:20: WBC 8.75, RBC 3.36 L, Hgb 10.0 L, Hct 30.6 L, MCV 91.1, MCH 29.8 , MCHC 32.7, RDW Coeff of Lexie 12.8, Plt Count 217, Immature Gran % (Auto) 0.7, Neut % (Auto) 60.5, Lymph % (Auto) 28.3, [place] % (Auto) 8.5, Eos % (Auto) 1.9, Baso % (Auto) 0.1, Immature Gran # (Auto) 0.1, Neut # 5.3, Lymph # 2.5, [place] # 0.7, Eos # 0.2, Baso # 0.0 08/18/17 15:00: Urine Color Yellow, Urine Clarity Clear, Urine pH 6.0, Ur Specific [place] 1.010, Urine Protein Negative, Urine Glucose (UA) Negative, Urine Ketones Negative, Urine Blood Trace-lysed, Urine Nitrite Negative, Urine Bilirubin Negative, Urine Urobilinogen 0.2, Ur Leukocyte Esterase 1+, Urine Microscopic WBC 20-30, Ur Squamous Epith Cells 2-5, Urine Bacteria 1+ ASSESSMENT: . 1. Right upper lobe pneumonia improved 2. UTI, culture pending 3. Hypercoagulation, resolved INR 1.6 4. Dehydration, resolved 5. Wound left ring finger PLAN: 1. D/C Vanco 2. Lantus 10 units at night 3. Prednisone 10 mg b.i.d. for 5 days 4. Repeat labs on Tuesday with an INR 5. Discharge back to [place] Plan and coordination of the patient's care discussed in the presence of Bread And Pastry Baker and nurse. CONDITION: Stable SCRIBED BY: AUGUSTINA ROSALES Security Tech scribed while in presence of service performed by Dr. Richardson/Shanita Kate APRN on 08/19/17 ([id number])
--- NOTE | 2017-08-19 10:16 | CM.DICTOOL ---
ADMISSION: 08/17/17 03:26 DISCHARGE: 08/19/17 DATE OF SERVICE: 08/19/17 FINAL DIAGNOSIS PNEUMONIA UTI, RECURRENT COAGULOPATHY DM, TYPE 1 DYSLIPIDEMIA HYPERTENSION ATRIAL FIBRILLATION CHRONIC KIDNEY DISEASE ANEMIA CVA, LEFT SIDED WEAKNESS DEMENTIA ANEMIA THYROID DISEASE GERD DISPLACED INTERTROCHANTERIC FX, LEFT FEMUR AND REPAIR (DR. RECINOS, 11/04) LAST VITALS Temp Pulse Resp BP Pulse Ox 97.1 F L 67 16 105/69 98 08/19/17 05:28 08/19/17 05:28 08/19/17 05:28 08/19/17 05:28 08/19/17 05:28 ACTIVE MEDICATIONS Acetaminophen (Tylenol) 650 mg PO Q4H PRN PRN Reason: Mild Pain Albuterol/Ipratropium (Duoneb) 1 vial NEB RTQ6H PRN PRN Reason: Wheezing Calcium Carbonate/Vit D3 1 Cap PO BID Docusate Sodium (Colace) 100 mg PO BID [facility] Last Admin: 08/19/17 08:40 Dose: 100 mg Ferrous Sulfate (Ferrous Sulfate) 324 mg PO DAILY [facility] Last Admin: 08/19/17 08:40 Dose: 324 mg Insulin Glargine (Lantus) 10 unit SUBCUT BEDTIME [facility] (DECREASED DOSE) Last Admin: 08/17/17 23:34 Dose: Not Given Insulin Human Regular (Humulin R) 0 unit SUBCUT PRN PRN; Protocol PRN Reason: Hyperglycemica Last Admin: 08/18/17 20:50 Dose: 4 unit Levothyroxine Sodium (Synthroid) 75 mcg PO QDAC [facility] Last Admin: 08/19/17 05:50 Dose: 75 mcg Magnesium Hydroxide (Milk Of Magnesia) 30 ml PO Q8HR PRN PRN Reason: Constipation Mupirocin (Bactroban) 1 applic TP BID [facility] Last Admin: 08/19/17 08:40 Dose: 1 applic Omeprazole (Prilosec) 20 mg PO QDAC [facility] Last Admin: 08/19/17 05:50 Dose: 20 mg Pancrelipase (Creon Dr 12,000 Units Capsule) 2 cap PO DAILY [facility] Last Admin: 08/19/17 08:40 Dose: 2 cap Pravastatin Sodium (Pravachol) 40 mg PO QPM [facility] Last Admin: 08/18/17 16:48 Dose: 40 mg Sennosides (Senna) 8.6 mg PO BID [facility] Last Admin: 08/19/17 08:40 Dose: 8.6 mg Warfarin Sodium (Coumadin) 1 mg PO QPM [facility] (DECREASED DOSE) Last Admin: 08/18/17 16:49 Dose: 1 mg ALLERGIES tuberculin, purified protein deriva [From Tubersol] Adverse Reaction (Verified 08/17/17 02:27) NEW PRESCRIPTIONS: RESUME PENITENTIARY MEDICATIONS PER LIST PROVIDED BY THE NURSING STAFF PLEASE NOTE THE DECREASE IN LANTUS TO 10 UNITS SUBCUT AT BEDTIME PLEASE NOTE THE DECREASE IN THE COUMADIN TO 1 MG PO Q PM DO NOT CONTINUE TAMIFLU (COMPLETED) DO NOT CONTINUE AUGMENTIN NEW MEDICATIONS PREDNISONE 10 MG PO BID WITH FOOD X5 DAYS OMNICEF 300 MG PO BID X 5 DAYS Z-[place], GIVE DIRECTED SMOKING: NONSMOKER LAB REVIEW: 08/19/17 04:20 08/19/17 04:20 08/19/17 04:20: Sodium 137, Potassium 3.8, Chloride 105, Carbon Dioxide 27, Anion Gap 8.8, BUN 12, Creatinine 0.82, Estimated GFR (MDRD) 67.00, BUN/ Creatinine Ratio 14.63, Glucose 57 L, Calcium 7.9 L, Total Bilirubin 0.4, AST 14 L, ALT 10 L, Alkaline Phosphatase 69, Total Protein 6.2, Albumin 1.9 L, Globulin 4.3, Albumin/Globulin Ratio 0.44 08/19/17 04:20: PT 12.1 H, INR 1.20 08/19/17 04:20: WBC 8.75, RBC 3.36 L, Hgb 10.0 L, Hct 30.6 L, MCV 91.1, MCH 29.8 , MCHC 32.7, RDW Coeff of Lexie 12.8, Plt Count 217, Immature Gran % (Auto) 0.7, Neut % (Auto) 60.5, Lymph % (Auto) 28.3, [place] % (Auto) 8.5, Eos % (Auto) 1.9, Baso % (Auto) 0.1, Immature Gran # (Auto) 0.1, Neut # 5.3, Lymph # 2.5, [place] # 0.7, Eos # 0.2, Baso # 0.0 08/18/17 15:00: Urine Color Yellow, Urine Clarity Clear, Urine pH 6.0, Ur Specific [place] 1.010, Urine Protein Negative, Urine Glucose (UA) Negative, Urine Ketones Negative, Urine Blood Trace-lysed, Urine Nitrite Negative, Urine Bilirubin Negative, Urine Urobilinogen 0.2, Ur Leukocyte Esterase 1+, Urine Microscopic WBC 20-30, Ur Squamous Epith Cells 2-5, Urine Bacteria 1+ PLAN: DISCHARGE BACK TO [facility] WHITLEY TODD APRN/DR. RICHARDSON WILL FOLLOW THE PATIENT DURING PENITENTIARY ROUNDS RESUME PENITENTIARY MEDICATIONS PER LIST PROVIDED BY THE NURSING STAFF PLEASE NOTE THE DECREASE IN LANTUS TO 10 UNITS SUBCUT AT BEDTIME PLEASE NOTE THE DECREASE IN THE COUMADIN TO 1 MG PO Q PM DO NOT CONTINUE TAMIFLU (COMPLETED) DO NOT CONTINUE AUGMENTIN NEW MEDICATIONS PREDNISONE 10 MG PO BID WITH FOOD X5 DAYS OMNICEF 300 MG PO BID X 5 DAYS Z-[place], GIVE DIRECTED LABS ACCU-CHECKS AT 11 AM AND 4 PM CBC WITH DIFF, CMP AND PT/INR ON 08/22/17 CBC WITH DIFF, CMP Q 3 MONTHS TSH, FREE T4 AND LIPIDS Q 6 MONTHS ACTIVITY MAY PARTICIPATE IN PENITENTIARY ACTIVITY PROGRAM TOLERATED APPLY BACTROBAN TO LEFT PALM AND LEFT HAND RING FINGERTIP TWICE DAILY. APPLY HAND ROLL DIET MECHANICAL SOFT IT SECURITY SPECIALIST PLEASE CONSULT TO PROVIDE FOR OPTIMAL NUTRITIONAL NEEDS SUMMARY THE PATIENT IS ALERT. SHE IS VERBAL BUT HER SPEECH IS DIFFICULT TO UNDERSTAND. THIS HAS BEEN A CHRONIC FINDING. SHE CURRENTLY IS A RESIDENT AT [facility]. SHE IS DEPENDENT ON OTHERS FOR ALL ADL'S AND IS NOT AMBULATORY. SHE WILL RETURN TO [facility] TODAY. SHE HAS AN OPEN AREA TO THE LEFT FOURTH FINGERTIP WHERE HER FINGERS ARE CONTRACTED AND APPLY GREAT PRESSURE TO HER LEFT PALM. THE PALM HAS A CALLOUSED AREA WELL. INSTRUCTIONS FOR CONTINUED CARE WILL BE COMMUNICATED TO [place] AT DISCHARGE. NUTRITIONAL AND HYDRATION STATUS ARE IMPROVED AT DISCHARGE. THE PATIENT IS AFEBRILE AND HAS STABLE VITAL SIGNS. CURRENT CODE STATUS DO NOT RESUSCITATE WHITLEY TODD APRN RAUL RICHARDSON M.D.
--- NOTE | 2017-08-23 14:57 | PN ---
DATE OF SERVICE: 08/19/17 SUBJECTIVE: 81 year old white female hospitalized with pneumonia and UTI. The patient's condition has improved remarkably. She is alert but confused feeling a lot better. PHYSICAL EXAMINATION: HEENT: Head normocephalic, atraumatic. Eyes: Extraocular muscles are intact. Pupils are equal, round and reactive to light and accommodation. Ears: No lesions. Nose appeared normal. Throat: No exudate or erythema. NECK: Supple. No JVD, no carotid bruit. No lymphadenopathy or thyromegaly. LUNGS: Decreased breath sounds but clear to auscultation. Percussion note normal. Chest symmetrical. HEART: S1, S2, no S3. No murmurs. No cyanosis or clubbing. No ascites. Pulses: Dorsalis pedis and posterior tibial pulses +1 to +2 both sides. ABDOMEN: Soft. Nontender. Bowel sounds active. No CVA tenderness. No mass felt. EXTREMITIES: No edema. Full range of motion of all extremities, equal. NEUROLOGIC: No focal deficit. Cranial nerves II through XII are grossly intact. No headache, no double vision or headache. SKIN: Not dry. Intact. Turgor - normal. LYMPHATIC: No palpable lymph nodes/no lymphedema. MUSCULOSKELETAL: Normal joints with no swelling. Muscle tone is normal. PLAN: 1. Discharged on Omnicef and Zithromax of 5 days duration. CONDITION: Stable. The patient was seen and examined with Nurse Practitioner. TIME SPENT: More than 30 minutes. Plan and coordination of the patient's care discussed in the presence of nurse. LUKE
--- NOTE | 2017-08-23 14:58 | PN ---
08/17/17: Level 5 08/18/17: Intermediate 08/19/17: D as in discharge. MTDD
--- NOTE | 2017-09-02 15:02 | DS ---
DATE OF SERVICE: 08/19/17 FINAL DIAGNOSIS: 1. PNEUMONIA 2. URINARY TRACT INFECTION, RECURRENT 3. COAGULOPATHY 4. DIABETES MELLITUS TYPE I 5. DYSLIPIDEMIA 6. HYPERTENSION 7. ATRIAL FIBRILLATION 8. CHRONIC KIDNEY DISEASE 9. ANEMIA 10. 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 DEMENTIA 12. THYROID DISEASE 13. GERD 14. DISPLACED INTERTROCHANTERIC FRACTURE, LEFT FEMUR REPAIR (DR. NAYLOR) VITAL SIGNS AT DISCHARGE: Temperature 97.1, 67, respiratory rate 16, blood pressure 105/69, pulse ox 98%. PLAN: 1. Discharge back to [facility]. 2. Shanita Kate/ will follow the patient during detention rounds. 3. Resume home medications as per list provided by nursing staff. 4. Apply Bactroban to left palm and left hand ring fingertip twice daily. Apply hand roll. 5. Accuchecks at 11 a.m. and 4 p.m. 6. CBC with differential, CMP, PT/INR on 08/22/17. 7. CBC with differential, CMP every 3 months. 8. TSH, FreeT4 and lipids every 6 months. 9. Please note the decrease in Lantus to 10 units subcu at bedtime. 10. Please note the decrease in Coumadin to 1 mg every p.m. 11. Do not continue Tamiflu-completed. 12. Do not continue Augmentin. MEDICATIONS AT DISCHARGE: Tylenol 650 mg every 4 hours prn DuoNeb one vial neb every 4 hours prn Calcium Carbonate/Vitamin D3 one cap twice daily Colace 100 mg twice daily. Ferrous sulfate 324 mg daily Lantus 10 units at bedtime-reduced dose Humulin R prn Synthroid 75 mcg daily Milk of Magnesium 30 ml every 8 hours Bactroban one application twice daily Prilosec 20 mg daily Creon 12,000 unit capsule twice daily Pravastatin 40 mg every p.m. Senna 8.6 mg twice daily Coumadin 1 mg every p.m.- decreased dose NEW PRESCRIPTIONS: Prednisone 10 mg twice daily with food for 5 days Omnicef 300 mg twice daily for 5 days Z oleksandr - give as directed ALLERGIES: Tuberculin purified protein derivative DIET INSTRUCTIONS: Mechanical soft. Physics Professor please consult to provide for optimal nutritional needs. ACTIVITY: May participate in detention program as tolerated. SMOKING: Nonsmoker. HOSPITAL COURSE: This is an 81 year old white female who is a resident of [facility]. She has a long history of dementia with behavior disturbances and unable to communicate. She usually just responses to her name otherwise she is not oriented to place or time. She was brought in for having decreased activity, low grade fever, she was not talking as much or eating as much at the detention. She was found to have right upper lobe pneumonia and a urinary tract infection along with an elevated INR of 5 in the emergency room. She was subsequently admitted and placed on Azactam IV along with Vancomycin 500mg Q 12 hours IV and IV fluid D5 1/2 normal saline at 75cc an hour. Her kidney function was slightly elevated on admission showing mild dehydration. This significantly improved after 24 hours of hydrations. Her IV fluids were stopped. Today on day of discharge her BUN is [address] of the chest revealed mild small right upper lobe pneumonia. She has been afebrile since admission and for the past 24 hours has been oriented to person and has been talking more. She has been eating 75-100% of her meals. Her cough is significantly improved. She does have diminished breath sounds bilaterally but is pretty much bed ridden and she does not take deep breaths like she should. She was given Vitamin K on the first day and her INR normalized yesterday and was down to 1.5. She is restarted on Coumadin today at 1mg and she has previously been on 2mg daily and her INR is 1.2 today. She is on Coumadin due to a history of atrial fibrillation. Her sugars have been normal somewhat low here with morning sugars down into the lowest being 57. We had decreased her Lantus to 10 unit at night to prevent hypoglycemia. Again she seem remarkably better. Her urine culture actually did not grow any bacteria, less than 30,000 colonies. She will be discharged back to the detention today in stable condition. Hgb 10.0, hct 30.6, WBC 8.75., sodium 137, potassium 3.8. We did find that she has a wound to the tip of the left ring finger which is likely due to contractures of her hands and chews on her finger nails likely due to confusion. This was swabbed for wound culture and we have been applying Bactroban and using a Gauze to separate her fingers to prevent further ulceration. The wound culture is still pending. This area is slightly red and has some very mild serosanguineous drainage. Again her white count is normal. Her cognitive status seems to back to baseline and again she has been eating well. She will go back to the detention on Omnicef 300mg twice a day for the next 5 days a long with a Z-oleksandr for the next 5 days as well as Prednisone 10mg twice a day for 5 days. TIME SPENT: More than 60 minutes. MARIOD
--- NOTE | 2017-09-12 10:20 | PN ---
DATE OF SERVICE: 08/17/17 SUBJECTIVE: 81-year-old white female hospitalized with pneumonia and UTI. The patient's condition is more or less stable with evidence of mild dehydration. The patient is being treated with nebs treatment, Vancomcyin along with Azactam. IV fluids given. Will watch for fluid overload. IV steroids given. The patient's INR was high on admission, more than 5. The patient was given Vitamin K 2 mg. No evidence of active GI bleed. CONDITION: Stable. The patient was seen and examined with nurse practitioner. TIME SPENT: More than 30 minutes. Plan and coordination of the patient's care discussed in the presence of nurse. LUKE
--- NOTE | 2017-09-12 10:25 | PN ---
DATE OF SERVICE: 08/18/17 SUBJECTIVE: The patient was seen and examined with the nurse practitioner. This is an 81- year-old white female hospitalized with pneumonia, UTI. The patient's condition is improved. Hydration status is improved. Creatinine 0.8, BUN 14, potassium 4.4 with hemoglobin 10.3 with WBC 8,000. The patient's INR is now 1.6, was given Vitamin K 2 mg p.o. yesterday. The patient will have Lantus held because of sugar being 89. Bactroban will be given for the wound. Otherwise continue IV antibiotics, steroids, nebs. Condition improving. TIME SPENT: More than 30 minutes. Plan and coordination of the patient's care discussed in the presence of nurse. LUKE
== END 2017-08-19 12:12 | DRG 194 ==
LOC: ED 01:34 → MEDSURG B 03:26
PROVIDERS: ADMIT Internal Medicine; ATTEND Internal Medicine
DX: J18.9 Pneumonia, unspecified organism (principal); N39.0 Urinary tract infection, site not specified; D68.9 Coagulation defect, unspecified; N17.9 Acute kidney failure, unspecified; I69.354 Hemiplegia and hemiparesis following cerebral infarction affecting left non-dominant side; E86.0 Dehydration; R50.9 Fever, unspecified; R06.02 Shortness of breath; R53.1 Weakness; G30.1 Alzheimer's disease with late onset; F02.80 Dementia in other diseases classified elsewhere, unspecified severity, without behavioral disturbance, psychotic disturbance, mood disturbance, and anxiety; E11.22 Type 2 diabetes mellitus with diabetic chronic kidney disease; E78.5 Hyperlipidemia, unspecified; I10 Essential (primary) hypertension; I12.9 Hypertensive chronic kidney disease with stage 1 through stage 4 chronic kidney disease, or unspecified chronic kidney disease; N18.9 Chronic kidney disease, unspecified; D64.9 Anemia, unspecified; E07.9 Disorder of thyroid, unspecified; K21.9 Gastro-esophageal reflux disease without esophagitis; S61.205A Unspecified open wound of left ring finger without damage to nail, initial encounter; Z87.440 Personal history of urinary (tract) infections; Z79.01 Long term (current) use of anticoagulants; Z79.4 Long term (current) use of insulin; Z86.79 Personal history of other diseases of the circulatory system; Z87.312 Personal history of (healed) stress fracture
CPT/HCPCS: 36415; 80053; 81001; 82803; 82962; 85025; 85610; 87040; 87070; 87081; 87086; 87502; 87651; 87880; 93005; 93010; 96365; 99284

== ENCOUNTER 2017-10-07 21:57 | Outpatient (CLI) | END 2017-10-07 21:58 | disposition short-term general hospital (02) | LOC: AMBL 21:57 | PROVIDERS: ATTEND Family Medicine | DX: R50.9 Fever, unspecified (principal); L08.89 Other specified local infections of the skin and subcutaneous tissue; F03.90 Unspecified dementia, unspecified severity, without behavioral disturbance, psychotic disturbance, mood disturbance, and anxiety ==

== ENCOUNTER 2017-10-14 20:50 | Outpatient (CLI) | END 2017-10-14 20:51 | disposition home or self-care (01) | LOC: NONPT 20:50 | PROVIDERS: ATTEND Internal Medicine | DX: Z20.828 Contact with and (suspected) exposure to other viral communicable diseases (principal) | CPT/HCPCS: 87502 ==

== ENCOUNTER 2017-11-08 10:15 | Outpatient (CLI) | payer OTHER | END 2017-11-08 10:16 | disposition home or self-care (01) | LOC: NONPT 10:15 | PROVIDERS: ATTEND Internal Medicine | DX: N39.0 Urinary tract infection, site not specified (principal) | CPT/HCPCS: 81001; 87086 ==

== ENCOUNTER 2019-01-05 14:21 | Outpatient (CLI) | payer OTHER | END 2019-01-05 14:22 | disposition home or self-care (01) | LOC: NONPT 14:21 | PROVIDERS: ATTEND Internal Medicine | DX: S91.105A Unspecified open wound of left lesser toe(s) without damage to nail, initial encounter (principal) | CPT/HCPCS: 87070; 87186 ==

== ENCOUNTER 2019-01-19 09:55 | Outpatient (CLI) | payer OTHER | END 2019-01-19 09:56 | disposition home or self-care (01) | LOC: NONPT 09:55 | PROVIDERS: ATTEND Internal Medicine | DX: S90.412A Abrasion, left great toe, initial encounter (principal); B95.62 Methicillin resistant Staphylococcus aureus infection as the cause of diseases classified elsewhere | CPT/HCPCS: 87070 ==

== ENCOUNTER 2019-04-16 10:43 | Outpatient (CLI) ==
[2019-04-16 16:44] VITALS: BMI 28.5
== END 2019-04-16 10:50 | disposition critical access hospital (66) ==
LOC: AMBL 10:43
PROVIDERS: ATTEND Internal Medicine
DX: R05 Cough (principal); R09.89 Other specified symptoms and signs involving the circulatory and respiratory systems

== ENCOUNTER 2019-04-23 15:16 | Outpatient (CLI) | payer OTHER ==
[2019-04-23 15:33] VITALS: BMI 30.4
== END 2019-04-23 19:21 | disposition short-term general hospital (02) ==
LOC: AMBL 15:16
PROVIDERS: ATTEND Internal Medicine
DX: R06.02 Shortness of breath (principal); J18.9 Pneumonia, unspecified organism; I49.3 Ventricular premature depolarization; R09.89 Other specified symptoms and signs involving the circulatory and respiratory systems; R05 Cough

== ENCOUNTER 2019-04-23 15:28 | Emergency (ER) | payer OTHER ==
[2019-04-23 15:33] VITALS: BP 101/76; TEMP 98.3; BMI 30.4
--- NOTE | 2019-04-23 17:22 | ED.PDOC ---
General ED Provider: Dr. YANY FALCON Chief Complaint: Shortness of Air Stated Complaint: 83 years old female from a local [place] reported to have a cough arrived in no resp distress with resp rate of 20 and a pulse ox of 95% on the room air . Time Seen by Physician: 15:30 (recently discharged from the hospital) Mode of Arrival: Ambulance Information Source: Patient, Half-Way, EMT Exam Limitations: No limitations Primary Care Provider: RAUL RICHARDSON Nursing and Triage Documentation Reviewed and Agree: Yes Does patient meet sepsis criteria?: No System Inflammatory Response Syndrome: Not Applicable Sepsis Protocol: For patient's 13 years and over: Temp is 96.8 and below OR 101 and greater Pulse >90 BPM Resp >20/minute Acutely Altered Mental Status Are patient's symptoms suggestive of a new infection, such as: -Pneumonia -Skin, Soft Tissue -Endocarditis -UTI -Bone, Joint Infection -Implantable Device -Acute Abdominal Infection -Wound Infection -Meningitis -Blood Stream Catheter Infection -Unknown Miscellaneous Complaint Exam - Complex/Multi-System Complaint/Exam Onset/Duration: today Symptoms Are: Resolved Episodes Lasting: Minutes Initial Severity: Mild Current Severity: None Location of Pain: abdominal Pain Radiates to: no Character: unable to describe Aggravating: unknown Alleviating: unknown Associated Signs and Symptoms: Reports: Cough, Abdominal pain. Denies: Decreased responsiveness, Confusion, Agitation, Dizziness, Weakness, Syncope, Headache, Short of air, Wheezing, Hemoptysis, Chest pain, Palpitations, Edema, Nausea, Vomiting, Diarrhea, Back pain, Dysuria, Hematemesis, Melena, Decreased oral intake, Fever, Diaphoresis, Immunocompromised, Anticoagulation Therapy, Recent medication changes, Indwelling medical claims analyst, Prior MRSA, Prior VRE, Recent trauma, Remote trauma Recent Echo/LV Function: No Respiratory Distress: None JVD Present: No Tachypnea Present: No Stridor Present: No Abdominal Findings: Present: Normal findings Glascow Coma Scale (see protocol): alert to self and her son responds to question through her son appropiately Meningeal Signs Positive: No Focal Weakness: Present: None Focal Sensory Loss: Present: None Gait: Unable Gag Reflex Present: Yes Babinski Sign: Negative Right, Negative Left Skin Findings: Present: Normal findings Joint Swelling Present: No In-Dwelling Device Present: No Differential Diagnosis: Aspiration, Metabolic Abnormality, UTI, Other ( pneumonia ) Quality Indicators for Cardiac Chest Pain: EKG in 10min. Quality Indicators for AMI: EKG in 10min. Quality Indicator For Non-Traumatic Chest Pain/Syncope: EKG Performed Review of Systems - Review Of Systems Constitutional: Reports: No symptoms Eyes: Reports: No symptoms Ears, Nose, Mouth, Throat: Reports: No symptoms Respiratory: Reports: Cough, Short of air (possible not short of breath in the E /D) Cardiac: Reports: No symptoms GI: Reports: No symptoms : Reports: No symptoms Musculoskeletal: Reports: No symptoms Skin: Reports: No symptoms Neurological: Reports: No symptoms Endocrine: Reports: No symptoms Hematologic/Lymphatic: Reports: No symptoms All Other Systems: Reviewed and Negative Past Medical History - Past Medical History Previously Healthy: No Endocrine: Reports: DM 2, Dyslipidemia Cardiovascular: Reports: Hypertension, A-Fib Respiratory: Reports: None Hematological: Reports: None Gastrointestinal: Reports: None Genitourinary: Reports: CKD Neuro/Psych: Reports: CVA Musculoskeletal: Reports: None Cancer: Reports: None Last Menstrual Period: n/a - Surgical History General Surgical History: Reports: Unknown - Family History Family History: Reports: Unknown - Social History Smoking Status: Never smoker Hx Substance Use: No Alcohol Screening: None Physical Exam - Physical Exam Appearance: Ill-appearing Ill-appearing: Mild Pain Distress: Mild Eyes: GLEN, EOMI, Conjunctiva clear ENT: Ears normal, Nose normal, Oropharynx normal Respiratory: Breath sounds diminished, Rhonchi Cardiovascular: RRR, Pulses normal, No rub, No murmur GI/: Soft, Nontender, No masses, Bowel sounds normal, No Organomegaly Musculoskeletal: Normal strength, ROM intact, No edema, No calf tenderness Skin: Warm, Dry, Normal color Neurological: Sensation intact, Motor intact, Reflexes intact, Cranial nerves intact, Alert, Oriented Psychiatric: Affect appropriate, Mood appropriate Re-Evaluation - Re-Evaluation Time of Re-Evaluation: 17:00 Status: Improved Vital Signs Stable: Yes Pain Level: 0 Appearance: NAD Lungs: Clear Skin: Warm and Dry Neuro: Alert and Oriented X3 CV: RRR - Re-Evaluation Time of Re-Evaluation: 18:08 Status: Improved Vital Signs Stable: Yes Pain Level: 0 Appearance: NAD Skin: Warm and Dry Neuro: Alert and Oriented X3 CV: RRR Physician Notification - Case Discussed Physician Notified: [email or web address] Time of Notification: 18:08 (transfer ) Physician Notified: [email or web address] Time of Notification: 18:09 Critical Care Note - Critical Care Note Total Time (mins): 0 Course - Course Hematology/Chemistry: 04/23/19 16:00 04/23/19 16:00 Orders, Labs, Meds: Lab Review 04/23/19 04/23/19 04/23/19 16:00 16:00 16:00 WBC 14.46 H RBC 4.02 L Hgb 12.1 Hct 39.2 MCV 97.5 MCH 30.1 MCHC 30.9 L RDW Coeff of Lexie 14.1 Plt Count 224 Immature Gran % (Auto) 0.7 Neut % (Auto) 75.4 Lymph % (Auto) 10.7 Rooks % (Auto) 9.9 Eos % (Auto) 3.2 Baso % (Auto) 0.1 Immature Gran # (Auto) 0.1 Neut # (Auto) 10.9 H Lymph # (Auto) 1.5 Rooks # (Auto) 1.4 Eos # (Auto) 0.5 Baso # (Auto) 0.0 PT INR APTT Sodium 140.5 Potassium 4.24 Chloride 107.2 H Carbon Dioxide 28.7 Anion Gap 8.84 BUN 35.9 H Creatinine 1.17 Estimated GFR (MDRD) 44.00 BUN/Creatinine Ratio 30.68 Glucose 226.0 H Lactic Acid Calcium 9.09 Total Bilirubin 0.44 AST 25.0 ALT 30.3 Alkaline Phosphatase 74.4 Total Creatine Kinase 30.8 Troponin I 0.205 H Total Protein 7.24 Albumin 3.53 Globulin 3.71 Albumin/Globulin Ratio 0.95 Procalcitonin 0.09 TSH Free T4 04/23/19 04/23/19 04/23/19 16:00 16:00 16:00 WBC RBC Hgb Hct MCV MCH MCHC RDW Coeff of Lexie Plt Count Immature Gran % (Auto) Neut % (Auto) Lymph % (Auto) Rooks % (Auto) Eos % (Auto) Baso % (Auto) Immature Gran # (Auto) Neut # (Auto) Lymph # (Auto) Rooks # (Auto) Eos # (Auto) Baso # (Auto) PT 12.3 H INR 1.28 APTT 24.7 Sodium Potassium Chloride Carbon Dioxide Anion Gap BUN Creatinine Estimated GFR (MDRD) BUN/Creatinine Ratio Glucose Lactic Acid 1.49 Calcium Total Bilirubin AST ALT Alkaline Phosphatase Total Creatine Kinase Troponin I Total Protein Albumin Globulin Albumin/Globulin Ratio Procalcitonin TSH Free T4 2.04 04/23/19 16:00 WBC RBC Hgb Hct MCV MCH MCHC RDW Coeff of Lexie Plt Count Immature Gran % (Auto) Neut % (Auto) Lymph % (Auto) Rooks % (Auto) Eos % (Auto) Baso % (Auto) Immature Gran # (Auto) Neut # (Auto) Lymph # (Auto) Rooks # (Auto) Eos # (Auto) Baso # (Auto) PT INR APTT Sodium Potassium Chloride Carbon Dioxide Anion Gap BUN Creatinine Estimated GFR (MDRD) BUN/Creatinine Ratio Glucose Lactic Acid Calcium Total Bilirubin AST ALT Alkaline Phosphatase Total Creatine Kinase Troponin I Total Protein Albumin Globulin Albumin/Globulin Ratio Procalcitonin TSH 3.580 Free T4 Orders Category Date Time Status ABG DRAW REQUEST Stat CARDIO 04/23/19 17:50 Ordered EKG-(ED ONLY) Stat CARDIO 04/23/19 15:47 Completed ABG Stat LAB 04/23/19 17:50 Ordered BLOOD CULTURE (ED ONLY) Stat LAB 04/23/19 15:47 Ordered CBC W/ AUTO DIFF Stat LAB 04/23/19 16:00 Completed COMPREHENSIVE METABOLIC PANEL Stat LAB 04/23/19 16:00 Completed CREATINE KINASE Stat LAB 04/23/19 16:00 Completed FREE T4 (FREE THYROXINE) Stat LAB 04/23/19 16:00 Completed LACTIC ACID Stat LAB 04/23/19 16:00 Completed PARTIAL THROMBOPLASTIN TIME Stat LAB 04/23/19 16:00 Completed PROCALCITONIN Stat LAB 04/23/19 16:00 Completed PT WITH INR Stat LAB 04/23/19 16:00 Completed THYROID STIMULATING HORMONE Stat LAB 04/23/19 16:00 Completed TROPONIN I Stat LAB 04/23/19 16:00 Completed URINALYSIS C & S IF INDICATED Stat LAB 04/23/19 15:47 Uncollected Piperacillin Sodium/Tazobactam [Zosyn 4.5 gm] 4.5 gm MEDS 04/23/19 17:50 Ordered 0.9 % Sodium Chloride [Sodium Chloride] [address] ABDOMEN/PELVIS WO CONTRAST Stat RADS 04/23/19 15:[address] CHEST W/O CONTRAST Stat RADS 04/23/19 15:48 Completed Medications Generic Name Dose Route Start Last Admin Trade Name Freq PRN Reason Stop Dose Admin Piperacillin Sod/Tazobactam 100 mls @ 100 mls/hr 04/23/19 17:50 Sod 4.5 gm/ Sodium Chloride IV 04/23/19 18:49 ONCE STA Vital Signs: Temp Pulse Resp BP Pulse Ox 04/23/19 15:28 98.3 F 91 H 20 101/76 95 Departure - Departure Time of Disposition: 18:09 Disposition: TSF SHORT-TRM HOSP Discharge Problem: Fecal impaction Uncontrolled diabetes mellitus Qualifiers: Diabetes mellitus type: other specified (including MT) Glycemic state: with hyperglycemia Qualified Code(s): E13.65 - Other specified diabetes mellitus with hyperglycemia Condition: Good Pt referred to PMD for follow-up: Yes IPMP verified?: No Additional Instructions: Please call your Family Physician as soon as possible to schedule a follow-up appointment. Allergies/Adverse Reactions: Allergies tuberculin, purified protein deriva [From Tubersol] Adverse Reaction (Verified 08/17/17 02:27) Home Medications: Ambulatory Orders Calcium Carbonate/Vitamin D3 [Calcium 600 + Vit D 400 Softgl] 1 cap PO BID 02/09 Ferrous Sulfate 325 mg PO DAILY 02/09/15 Omeprazole [Prilosec] 10 mg PO QDAC 02/09/15 Pravastatin Sodium [Pravachol] 40 mg PO QPM 02/09/15 Docusate Sodium [Colace] 100 mg PO BID 10/29/15 Insulin Regular, Human [Humulin R] 1 unit SUBCUT DIRECTED PRN 10/29/15 Sennosides [Senna] 8.6 mg PO BID 10/29/15 Acetaminophen [Tylenol] 2 tab PO Q6H PRN 08/17/17 Sub-Q Infusion Pump Accessory [Accu-Chek] 1 each MC BID 08/17/17 Insulin Glargine,Hum.rec.anlog [Lantus] 18 unit SUBCUT BEDTIME 04/16/19 Levothyroxine Sodium 100 mcg PO DAILY 04/16/19 Lipase/Protease/Amylase [[place] 12,000 Units Capsule] 1 cap PO DAILY 04/16/19 Nystatin [Nystatin Cream] 1 applic TP TID PRN 04/16/19 Cefdinir [Omnicef] 300 mg PO Q12HR #1 capsule 04/20/19 Ipratropium/Albuterol Neb [Duoneb] 1 vial NEB TID #1 04/20/19 Prednisone 10 mg PO BIDWM tablet 04/20/19 Warfarin Sodium [Coumadin] 2 mg PO QPM #1 04/20/19 Disposition Discussed With: Patient, Family
--- NOTE | 2019-04-23 17:31 | CT ---
EXAM: Noncontrast CT of the abdomen and pelvis HISTORY: Pain COMPARISON: 04/16/2019 TECHNIQUE: Axial noncontrast CT of the abdomen and pelvis with sagittal and coronal reformats. FINDINGS: Bilateral effusions and basilar opacities are identified. Patient motion limits evaluation. The liver, spleen, adrenals and kidneys appear grossly within norm al limits. Multiple gallstones are seen. The pancreas is atrophic. The stomach is not well distended. No abnormal small bowel dilation is seen. The rectum is distende d with a large amount of stool, mildly increased compared to the prior exam. There is moderate cecal and ascending colonic stool. The appendix is not seen. There is bladder wall thickening, however the bladder is not well distended. Extensive atherosclerot ic calcifications are identified. No free air or significant free fluid is identified. ORIF of the left proximal femur is seen. IMPRESSION: Distension of the rectum with a large amount of stool, mildly increased, concerning for fecal impacti on. Moderate proximal colonic stool. Mild bladder wall thickening which could be due to underdistension, chronic outlet obstruction or cys titis. Extensive atherosclerosis. Cholelithiasis. Suboptimal exam due to patient motion. Please see chest CT report for chest findings.
--- NOTE | 2019-04-23 17:39 | CT ---
EXAM: Noncontrast chest CT HISTORY: Cough COMPARISON: 04/16/2019 TECHNIQUE: Axial noncontrast CT of the chest with sagittal and coronal reformats. FINDINGS: Patient motion somewhat limits evaluation. Small to moderate right and moderate left pleural effusio ns are seen and increased compared to the prior exam. There is adjacent left lower lobe atelectasis. Bilateral ground-glass opacities are seen which are much more prominent than in the prior exam. The re is a patchy consolidation bilaterally which are new compared to the prior exam. Bilateral peribro nchial wall thickening is seen. There may be debris within the mid to lower trachea and both mainste m bronchi. The nodularity seen in the prior exam is not well demonstrated this exam. No pneumothora x is seen. The heart is mildly enlarged. Calcification of mitral valve annulus and aortic valve calcifications are identified. Atherosclerotic calcifications seen including coronary arteries. No definite medias tinal lymphadenopathy is seen with limited evaluation of the subcarinal region. Degenerative changes of the left shoulder and spine are seen. Mild remote compression deformity of a lower thoracic vertebral body is seen. There is minimal remote superior endplate compression deform ity of an upper thoracic vertebral body. IMPRESSION: Small to moderate right and moderate left pleural effusions, increased compared to the prior exam. Increased bibasilar ground-glass opacities, now with areas of patchy consolidation. This could be du e to multifocal pneumonia and/or pulmonary edema. Peribronchial wall thickening suggesting possible bronchiolitis. Possible mild debris within the mid to lower trachea and both mainstem bronchi versus artifact second manda to the patient motion. Cardiomegaly. Atherosclerosis including coronary arteries.
[2019-04-23] MEDS: ZOSYN 4.5 GM 4.5 GM in SODIUM CHLORIDE 100 ML IV STA (18:31)
== END 2019-04-23 18:57 | disposition short-term general hospital (02) ==
LOC: ED 15:28
DX: K56.41 Fecal impaction (principal); E13.65 Other specified diabetes mellitus with hyperglycemia; R06.02 Shortness of breath; E78.5 Hyperlipidemia, unspecified; I10 Essential (primary) hypertension; N18.9 Chronic kidney disease, unspecified; Z79.899 Other long term (current) drug therapy; Z79.01 Long term (current) use of anticoagulants; Z79.4 Long term (current) use of insulin; Z86.73 Personal history of transient ischemic attack (TIA), and cerebral infarction without residual deficits
CPT/HCPCS: 36415; 80053; 82550; 82803; 83605; 84145; 84439; 84443; 84484; 85025; 85610; 85730; 87040; 93005; 93010; 96365; 99285